=== PATIENT | female | born 2000 | race Hispanic/Latino ===

== ENCOUNTER 2021-09-16 10:00 | Emergency (ER) | payer OTHER ==
[~2021-09-16] VITALS: Ht 149.9 cm; Wt 63.5 kg
[2021-09-16 12:46] VITALS: BP 106/64
== END 2021-09-16 12:48 | disposition home or self-care (01) ==
LOC: EDH 10:00
DX: T74.21XA Adult sexual abuse, confirmed, initial encounter (principal); Y07.9 Unspecified perpetrator of maltreatment and neglect